=== PATIENT | female | born 1940 | race Caucasian/White ===

== ENCOUNTER 2017-05-02 07:14 | Day surgery (SDC) | payer OTHER ==
--- NOTE | 2017-05-01 13:21 | PREOPHP ---
DATE OF ADMISSION: 05/02/2017 HISTORY OF PRESENT ILLNESS: This 76-year-old patient is admitted for elective cataract surgery of t he left eye. The patient has had progressive deterioration of vision in the left eye. The patient also has had a history of anatomic narrow angle glaucoma which was treated with peripheral iridotomi es bilaterally. The patient's systemic history is positive for systemic hypertension and hypothyroi dism. CURRENT MEDICATIONS INCLUDE: 1. Atenolol. 2. Benazepril 3. Synthroid. ALLERGIES: PATIENT IS ALLERGIC TO SULFACETAMIDE. PHYSICAL EXAMINATION: The visual acuity with best correction is 20/40 in the right eye and 20/200 i n the left eye. Slit lamp examination reveals patent peripheral iridotomies in both eyes. The lens shows evidence of nuclear sclerosis with particular formation in the left eye. Applanation t onometry is 20 mmHg in both eyes. Examination of the retina is within normal limits without evidenc e of abnormal optic disk cupping. DIAGNOSIS: Cataract, left eye. PLAN: Cataract extraction with lens implant, left eye. The risks and alternatives to the surgery h ave been discussed with the patient as well as the hope for improvement of visual acuity leading to a greater ability to perform activities of daily living. The patient understands this and agrees to proceed with surgery. Dictated By: ALON MARTINEZ/NADINE Conf#: [id number] DID#: [id number]
[~2017-05-02] VITALS: Ht 144.8 cm; Wt 91.7 kg
[2017-05-02] VITALS (12 sets, daily range): BP systolic 104–129; BP diastolic 51–61; PULSE 70–79; RESP 11–18; Ht 144.8 cm; Wt 91.7 kg
[~2017-05-02 07:14] MED LIST: BLOOD PRESSURE MEDS; PAIN MEDS; [UNRECOGNIZED DRUG - REMARK]
[2017-05-02] MEDS ORDERED: MOXIFLOXACIN 0.5% 3 ML OPH OPER SCH ×2 (08:00→10:00)
[2017-05-02] MEDS ORDERED: CYCLOPENTOLATE/PHENYLEPH 2 ML OPH OPER SCH ×2 (08:00→10:00)
[2017-05-02] MEDS ORDERED: DICLOFENAC 0.1% 2.5 ML OPH OPER SCH ×2 (08:00→10:00)
[2017-05-02] MEDS ORDERED: TROPICAMIDE 1% 2 ML OPH OPER SCH ×2 (08:00→10:00)
[2017-05-02] MEDS ORDERED: SOD CHLORIDE 0.9% 1,000 ML IV SCH ×2 (08:00→10:00)
[2017-05-02] MEDS ORDERED: LEVO100T82 PO (08:02)
[2017-05-02] MEDS ORDERED: LOSA1TAB20 PO (08:02)
[2017-05-02] MEDS ORDERED: ATEN-51 PO (08:03)
[2017-05-02] MEDS ORDERED: CRES10 PO (08:03)
[2017-05-02] MEDS ORDERED: AMLO-147 PO (08:04)
[2017-05-02] MEDS ORDERED: PANT40TA3 PO (08:04)
[2017-05-02] MEDS ORDERED: TROPICAMIDE 1% 3 ML OPH ONE (08:17)
[2017-05-02] MEDS ORDERED: CARBACHOL 0.01% 1.5 ML OPH INJ ONE (09:25)
[2017-05-02] MEDS ORDERED: CEFAZOLIN 1 GM INJ ONE (09:25)
[2017-05-02] MEDS ORDERED: DEXAMETHASONE 4 MG/ML 1 ML INJ ONE (09:25)
[2017-05-02] MEDS ORDERED: PROPOFOL 20 ML ONE (09:38)
[2017-05-02] MEDS ORDERED: FENTAnyl 50 MCG/ML VIAL ONE (09:58)
[2017-05-02] MEDS ORDERED: LABETALOL HCL 20MG INJ IV PRN (10:00)
[2017-05-02] MEDS ORDERED: HYDROmorphONE (0.2 MG/ML) 10ML SYG IV PRN ×3 (10:00)
[2017-05-02] MEDS ORDERED: FENTAnyl 50 MCG/ML VIAL IV PRN ×2 (10:00)
[2017-05-02] MEDS ORDERED: MEPERIDINE 25 MG INJ IV PRN (10:00)
[2017-05-02] MEDS ORDERED: ONDANSETRON 4 MG INJ IV PRN (10:00)
[2017-05-02] MEDS ORDERED: hydrALAzine 20 MG INJ IV PRN (10:00)
--- NOTE | 2017-05-02 11:04 | SIPON ---
Date/Time of Note Date/Time of Note DATE: 05/02/17 TIME: 11:02 Operative Report Preoperative Diagnosis cataract os Postoperative Diagnosis same Operation/Procedure Performed cataract extraction with lens implant os Surgeon see signature line assistant bookkeeper none Anesthesia: MAC Estimated blood loss: none Transfusion Required none Specimen none Grafts/Implants posterior chamber lens implant Complications none ALON GARNETT MD May 02, 2017 11:03
--- NOTE | 2017-05-02 11:04 | SIPON ---
Date/Time of Note Date/Time of Note DATE: 05/02/17 TIME: 11:02 Operative Report Preoperative Diagnosis cataract os Postoperative Diagnosis same Operation/Procedure Performed cataract extraction with lens implant os Surgeon see signature line psychiatric assistant none Anesthesia: MAC Estimated blood loss: none Transfusion Required none Specimen none Grafts/Implants posterior chamber lens implant Complications none ALON GARNETT MD May 02, 2017 11:03
--- NOTE | 2017-05-02 11:10 | OPR ---
DATE OF OPERATION: 05/02/2017 PREOPERATIVE DIAGNOSIS: Cataract, left eye. POSTOPERATIVE DIAGNOSIS: Cataract, left eye. OPERATION PERFORMED: Cataract extraction with lens implant, left eye. SURGEON: Alon Soni MD. ANESTHESIA: Monitored anesthesia, Dr. Lyons. OPERATION: Phacoemulsification with posterior chamber intraocular lens implant, left eye. PROCEDURE: The patient was brought to the operating room and placed on the table with an IV in plac e and the patient attached to an pile driver operator barge mounted. Oxygen was given via face mask. After some intravenous sedation was administered, local anesthesia was given using Xylocaine 2% with epinephrine, mixed with Marcaine 0.5%. This was given in a lid block and retrobulbar injection. The patient was then prepped and draped in the usual sterile manner. A wire lid speculum was inserted between the lids of the left eye. A Superblade was used to enter th e anterior chamber at the corneoscleral limbus at the 10:30 o'clock position. A separate incision wa s made using a 3.0-mm keratome which entered the corneoscleral junction at the 12 o'clock position. Through this 3-mm opening, an irrigating cystotome was introduced into the anterior chamber. The jessica mber was filled with Viscoat and an anterior capsulotomy was performed. Balanced salt solution was t hen used for hydrodissection of the lens. A phacoemulsification handpiece was then brought into the field and introduced into the anterior chamber. The lens nucleus was emulsified using a deep groove and cracking the nucleus into quadrants. Following this, each quadrant was aspirated and emulsified at the pupillary margin. It was noted that there was a layer of epinucleus on the posterior capsule extending from the inferi or quadrant to the superonasal quadrant that was difficult to remove and remained partially in place . At the end of the phacoemulsification. It was decided that if this presented a visual problem du ring the postoperative period, the patient would be treated with a laser capsulotomy to create a win noel in the center of the posterior capsule for patient to have satisfactory central visual acuity. After this was completed, the irrigation/aspiration handpiece was brought to the field, introduced i nto the posterior chamber, and the lens cortical material was removed. When this was completed, crystal tional Viscoat was injected into the anterior and posterior chambers. The 3-mm opening had its internal lips enlarged, and then the posterior chamber intraocular lens davis suring 21.5 diopters (Bausch and Lomb model LI61A0) was then injected into the posterior chamber usi ng the lens injector system. After the leading haptic was introduced into the capsular bag and the l ens optic was present in the center of the eye, the injector was removed and the trailing haptic was grasped with non-toothed forceps and introduced into the capsular fold superiorly. A Sinskey hook w as then used to rotate the intraocular lens so that the lips were oriented in the horizontal meridia n. One 10-0 nylon suture was placed across the wound. Prior to tying, the irrigation/aspiration handpiece was reintroduced into the anterior chamber to re move the Viscoat. Miochol was instilled to constrict the pupil, and then the 10-0 nylon suture was t ied. The ends were cut short and then the knot was buried. Then, 0.5 mL of dexamethasone and 0.5 mL of Ancef were injected into the sub-Tenon space in the infe rior fornix. Ciloxan drops were then placed on the surface of the eye. The speculum was removed and a patch was applied. The patient then left the operating room in satisfactory condition. Dictated By: ALON MARTINEZ/NADINE Conf#: [id number] DID#: [id number]
== END 2017-05-02 12:15 | disposition home or self-care (01) ==
LOC: SDS 07:14
PROVIDERS: ATTEND Ophthalmology
DX: H25.12 Age-related nuclear cataract, left eye (principal); I10 Essential (primary) hypertension
CPT/HCPCS: 66984; J0690; J1100; J3010; J7030; V2632

== ENCOUNTER → 2017-06-22 | Outpatient (CLI) | payer OTHER ==
[~2017-06-22] MED LIST changes: +AMLO-147 PO; +APRACLONIDINE 1% 0.1 ML OPH ONE; +ATEN-51 PO; -BLOOD PRESSURE MEDS; +CRES10 PO; +LEVO100T82 PO; +LOSA1TAB25 PO; +OPHTHALMIC IRRIG SOLUTION 120 ML ONE; -PAIN MEDS; +PANT40TA3 PO; +PHENYLephrine 10% 5 ML OPH ONE; +PROPARACAINE 0.5% 15 ML OPH ONE; +TROPICAMIDE 1% 3 ML OPH ONE; -[UNRECOGNIZED DRUG - REMARK]
== END | disposition home or self-care (01) ==
LOC: RAD 10:26
PROVIDERS: ATTEND Ophthalmology
DX: H26.9 Unspecified cataract (principal)
CPT/HCPCS: 66821

== ENCOUNTER 2018-08-07 07:48 | Day surgery (SDC) | payer OTHER ==
--- NOTE | 2018-08-06 12:28 | PREOPHP ---
DATE OF ADMISSION: 08/07/2018 HISTORY OF PRESENT ILLNESS: This 78-year-old patient is admitted for elective cataract surgery of th e right eye. The patient previously underwent cataract surgery of the left eye 2 years ago with an e xcellent visual result. The patient denies any other history of eye disease or injury. PAST MEDICAL HISTORY: Systemic history is positive for hypertension, hypothyroidism, neuropathy and heart disease. CURRENT MEDICATIONS: Include: 1. Atenolol. 2. Gabapentin. 3. Losartan. 4. Amlodipine. 5. Nitroglycerin. The patient had previously been on aspirin therapy, but is currently not using it. ALLERGIES: THERE ARE NO KNOWN ALLERGIES. PHYSICAL EXAMINATION: The visual acuity with correction is 20/50 in the right eye and 20/40 in the l eft eye. Slit lamp examination reveals a nuclear sclerotic cataract in the right eye and a posterior chamber intraocular lens in appropriate position in the left eye. Applanation tonometry is 16 mmHg. Examination of the retina is within normal limits. DIAGNOSIS: Nuclear sclerotic cataract, right eye. PLAN: Cataract extraction with lens implant, right eye. The risks and alternatives to the surgery h ave been discussed with the patient and patient has opted to proceed with surgery. Dictated By: ALON MARTINEZ/NADINE Conf#: [id number] DID#: [id number]
[2018-08-06 12:30] VITALS: BMI 30.8
[2018-08-07] VITALS (10 sets, daily range): BP systolic 119–125; BP diastolic 54–64; PULSE 64–72; RESP 15–28; Ht 146.1 cm; Wt 70.1 kg
[~2018-08-07] VITALS: Ht 146.1 cm; Wt 70.1 kg
[~2018-08-07 07:48] MED LIST changes: -APRACLONIDINE 1% 0.1 ML OPH ONE; -CRES10 PO; +CYCLOPENTOLATE/PHENYLEPH 2 ML OPH OPER SCH; +DICLOFENAC 0.1% 2.5 ML OPH OPER SCH; +MOXIFLOXACIN 0.5% 3 ML OPH OPER SCH; -OPHTHALMIC IRRIG SOLUTION 120 ML ONE; -PHENYLephrine 10% 5 ML OPH ONE; -PROPARACAINE 0.5% 15 ML OPH ONE; +ROSU10TA55 PO; +SOD CHLORIDE 0.9% 1,000 ML IV SCH; +TROPICAMIDE 1% 15 ML OPH OPER SCH; -TROPICAMIDE 1% 3 ML OPH ONE
[2018-08-07] MEDS ORDERED: ROSU10TA55 PO (08:15)
[2018-08-07] MEDS ORDERED: PANT40TA4 PO (08:15)
[2018-08-07] MEDS ORDERED: LEVO100T82 PO (08:15)
[2018-08-07] MEDS ORDERED: LOSA1TAB25 PO (08:15)
[2018-08-07] MEDS ORDERED: NITR0.4T39 SL (08:16)
[2018-08-07] MEDS ORDERED: LOPE-123 PO (08:18)
[2018-08-07] MEDS ORDERED: ERGO2000 PO (08:18)
[2018-08-07] MEDS ORDERED: ATEN-51 PO (08:20)
[2018-08-07] MEDS ORDERED: AMLO-147 PO (08:20)
[2018-08-07] MEDS ORDERED: OMEG-135 PO (08:21)
--- NOTE | 2018-08-07 09:32 | PREAC ---
Date/Time of Note Date/Time of Note DATE: 08/07/18 TIME: 09:30 Anesthesia Eval and Record Evaluation Time Pre-Procedure Interview DATE: 08/07/18 TIME: 09:30 Age 78 Sex female NPO: 8 hrs Preoperative diagnosis Right Eye Cataract Planned procedure Right Eye Cataract Extraction with IOL Implant Past Medical History Past Medical History: Includes Cardio: HTN, Dyslipidemia Endo: Hypothyroid Surgery & Anesthesia Issues No known issue Meds Anticoagulation: No Beta Koffi within 24 hr: Yes Reported Medications Jones-3 Fatty Acids/Fish Oil (Fish Oil 1,000 mg Capsule) 1 Each Capsule, 1 EACH PO DAILY, CAP 08/07/18 Amlodipine Besylate* (Amlodipine Besylate*) 10 Mg Tablet, 10 MG PO DAILY, #30 TAB 08/07/18 Atenolol* (Atenolol*) 25 Mg Tablet, 25 MG PO DAILY, #30 TAB 08/07/18 Ergocalciferol (Vitamin D2) (VITAMIN D2) 2,000 Unit Tablet, 2000 UNIT PO DAILY, TAB 08/07/18 Loperamide Hcl* (Loperamide Hcl*) 2 Mg Cap, 2 MG PO BID PRN for DIARRHEA, CAP 08/07/18 Nitroglycerin* (Nitrostat*) 0.4 Mg Tab.subl, 0.4 MG SL Q5MIN PRN for CHEST PAIN, BOTTLE 08/07/18 Rosuvastatin Calcium* (Crestor*) 10 Mg Tablet, 10 MG PO QHS, #30 TAB 08/07/18 Pantoprazole* (Pantoprazole*) 40 Mg Tablet.dr, 40 MG PO DAILY, TAB 08/07/18 Levothyroxine Sodium* (Levoxyl*) 100 Mcg Tablet, 100 MCG PO BEFORE BREAKFAST, #30 TAB 08/07/18 Losartan-Hydrochlorothiazide (Losartan-HCTZ) 100-25 Mg Tab, 1 TAB PO DAILY, TAB 08/07/18 Discontinued Reported Medications Pantoprazole* (Protonix*) 40 Mg Tablet.dr, 40 MG PO DAILY, TAB 05/02/17 Amlodipine Besylate* (Amlodipine Besylate*) 10 Mg Tablet, 10 MG PO DAILY, #30 TAB 05/02/17 Atenolol* (Atenolol*) 25 Mg Tablet, 25 MG PO QHS, #30 TAB 05/02/17 Rosuvastatin Calcium* (Crestor*) 10 Mg Tablet, 10 MG PO QHS, #30 TAB 05/02/17 Levothyroxine Sodium* (Levoxyl*) 100 Mcg Tablet, 100 MCG PO BEFORE BREAKFAST, #30 TAB 05/02/17 Losartan-Hydrochlorothiazide (Losartan-HCTZ) 100-25 Mg Tab, 1 TAB PO DAILY, TAB 05/02/17 Current Medications Diclofenac Sodium (Voltaren 0.1%) 1 drop Q5 MIN X 3 OPER Last administered on 08/07/18at 08:30; Admin Dose 1 DROP; Start 08/07/18 at 06:00 Tropicamide (Mydriacyl 1%) 1 drop Q5 MIN X3 OPER Last administered on 08/07/18at 08:30; Admin Dose 1 DROP; Start 08/07/18 at 06:00 Moxifloxacin HCl (Vigamox) 1 drop Q5 MIN X 3 OPER Last administered on 08/07/18at 08:30; Admin Dose 1 DROP; Start 08/07/18 at 06:00 Cyclopentolate/ Phenylephrine (Cyclomydril Oph 2 ml) 1 drop Q5 MIN X 3 OPER Last administered on 08/07/18at 08:30; Admin Dose 1 DROP; Start 08/07/18 at 06:00 Sodium Chloride 1,000 ml @ 25 mls/hr Q24H IV ; Start 08/07/18 at 06:00 Meds reviewed: Yes Allergies Coded Allergies: Sulfa (Sulfonamide Antibiotics) (Verified Allergy, Mild, 08/07/18) Allergies Reviewed: Yes Labs/Studies Labs Reviewed: Reviewed by anesthesiologist test: N/A Studies: ECG (n/a), CXR (n/a) Pre-procedure Exam Airway: Adequate mouth opening, Adequate thyromental dist Mallampati: Mallampati II Teeth: Normal Lung: Normal Heart: Normal ASA Physical Status ASA physical status: 3 Emergency: None Planned Anesthetic General/MAC: MAC Planned Pain Management Parenteral pain med Pre-operative Attestations Prior to commencing anesthesia and surgery, the patient was re-evaluated, there was verification of: *The patient's identity *The results of appropriate recent lab work and preoperative vital signs *The above evaluation not changing prior to induction *Anesthetic plan, risk benefits, alternative and complications discussed with patient/family; questions answered; patient/family understands, accepts and wishes to proceed. MEAGAN MCGINNIS MD Aug 07, 2018 09:32
[2018-08-07] MEDS ORDERED: PROPOFOL 20 ML ONE (09:37)
[2018-08-07] MEDS ORDERED: ONDANSETRON 4 MG INJ ONE (09:37)
[2018-08-07] MEDS ORDERED: METOCLOPRAMIDE 10 MG INJ ONE (09:37)
[2018-08-07] MEDS ORDERED: METOCLOPRAMIDE 10 MG INJ IV PRN (10:00)
[2018-08-07] MEDS ORDERED: hydrALAzine 20 MG INJ IV PRN (10:00)
[2018-08-07] MEDS ORDERED: FENTAnyl 50 MCG/ML VIAL IV PRN (10:00)
[2018-08-07] MEDS ORDERED: LABETALOL HCL 20MG INJ IV PRN (10:00)
[2018-08-07] MEDS ORDERED: ONDANSETRON 4 MG INJ IV PRN (10:00)
[2018-08-07] MEDS ORDERED: EPHEDrine SULFATE 50 MG/5 ML SYG IV PRN (10:00)
[2018-08-07] MEDS ORDERED: OXYCODONE/ACETAMINOPHEN (5/325) TAB PO PRN (10:00)
[2018-08-07] MEDS ORDERED: morphine (1 MG/ML) 10ML SYRINGE IV PRN (10:00)
--- NOTE | 2018-08-07 10:11 | NUR ---
RECEIVED RESPONSIVE IN NO DISTRESS, RIGHT EYE PATCH AND SHIELD IN PLACE. DENIES PAIN AT THIS TIME.
[2018-08-07] MEDS ORDERED: DEXAMETHASONE 4 MG/ML 1 ML INJ ONE (10:13)
[2018-08-07] MEDS ORDERED: CEFAZOLIN 1 GM INJ ONE (10:13)
[2018-08-07] MEDS ORDERED: NA HYALURONATE/CHONDROITIN 0.5 ML SYG ONE (10:13)
[2018-08-07] MEDS ORDERED: CARBACHOL 0.01% 1.5 ML OPH INJ ONE (10:13)
[2018-08-07] MEDS ORDERED: LIDOCAINE 4% (MPF) 5 ML INJ ONE (10:13)
--- NOTE | 2018-08-07 10:16 | SIPON ---
Date/Time of Note Date/Time of Note DATE: 08/07/18 TIME: 10:15 Operative Report Preoperative Diagnosis nuclear sclerotic cataract od Postoperative Diagnosis same Operation/Procedure Performed cataract extraction with lens implant od Surgeon alon garnett or assistant none Anesthesia: MAC Estimated blood loss: none Transfusion Required none Specimen none Grafts/Implants posterior chamber lens implant Complications none ALON GARNETT MD Aug 07, 2018 10:16
--- NOTE | 2018-08-07 10:25 | PAC ---
Date/Time of Note Date/Time of Note DATE: 08/07/18 TIME: 10:25 Post-Anesthesia Notes Post-Anesthesia Note Last documented vital signs T:98.0 Activity: WNL Respiratory function: WNL Cardiovascular function: WNL Mental status: Baseline Pain reasonably controlled: Yes Hydration appropriate: Yes Nausea/Vomiting absent: Yes MEAGAN MCGINNIS MD Aug 07, 2018 10:25
--- NOTE | 2018-08-07 10:50 | NUR ---
FULLY AWAKE AND ALERT. STATED SHE STILL HAS MINIMAL PAIN AND FEELING A LITTLE DIZZY. MADE AWARE NORMAL FEELING DUE TO ANESTHESIA. DAUGHTER UPDATED ON STATUS AND WILL WAIT IN [facility]. REPORT TO SANA KULKARNI. TRANSFERRED TO [facility].NO S/S BLEEDING. RUGHT EYE PATCH AND SHIELD IN PLACE.
--- NOTE | 2018-08-07 12:03 | NUR ---
THE PT ALERT AND ORIENTED VITAL SIGNS WITHIN NORMAL LIMITS, NO PAIN OR DISCOMFORT REPORTED D/C INSTRUCTIONS PROVIDED TO PT AND FAMILY, VERBALIZED UNDERSTANDING AND READINESS TO GO HOME INCISION SITE: DRY CLEAN AND INTACT
--- NOTE | 2018-08-07 15:05 | OPR ---
DATE OF OPERATION: 08/07/2018 PREOPERATIVE DIAGNOSIS: Nuclear sclerotic cataract, right eye. POSTOPERATIVE DIAGNOSIS: Nuclear sclerotic cataract, right eye. PROCEDURE: Cataract extraction with lens implant, right eye. SURGEON: Alon Soni MD ANESTHESIA: Local standby. ANESTHESIOLOGIST: Dr. Lindquist OPERATION: Phacoemulsification with posterior chamber intraocular lens implant, right eye. PROCEDURE: The patient was brought to the operating room and placed on the table with an IV in place and the patient attached to an nurse monitoring. Oxygen was given via face mask. After some intravenous sedation was administered, local anesthesia was given using Xylocaine 2% with epinephrine, mixed with Marcaine 0.5%. This was given in a lid block and retrobulbar injection. The p atient was then prepped and draped in the usual sterile manner. A wire lid speculum was inserted between the lids of the right eye. A Superblade was used to enter th e anterior chamber at the corneoscleral limbus at the 10:30 o'clock position. A separate incision was made using a 3.0-mm keratome which entered the corneoscleral junction at the 12 o'clock position. Th rough this 3-mm opening, an irrigating cystitome was introduced into the anterior chamber. The chambe r was filled with Viscoat and an anterior capsulotomy was performed. Balanced salt solution was then used for hydrodissection of the lens. A phacoemulsification handpiece was then brought into the fiel d and introduced into the anterior chamber. The lens nucleus was emulsified using a deep groove and c racking the nucleus into quadrants. Following this, each quadrant was aspirated and emulsified at the pupillary margin. After this was completed, the irrigation/aspiration handpiece was brought to the field, introduced in to the posterior chamber, and the lens cortical material was removed. When this was completed, additi onal Viscoat was injected into the anterior and posterior chambers. The 3-mm opening had its internal lips enlarged, and then the posterior chamber intraocular lens laure uring 23.5 diopters posterior chamber intraocular lens (Bausch and Lomb model LI61AO) was then inject ed into the posterior chamber using the lens injector system. After the leading haptic was introduced into the capsular bag and the lens optic was present in the center of the eye, the injector was ham alex and the trailing haptic was grasped with non-toothed forceps and introduced into the capsular fol d superiorly. A Sinskey hook was then used to rotate the intraocular lens so that the lips were orien viktoriya in the horizontal meridian. One 10-0 nylon suture was placed across the wound. Prior to tying, the irrigation/aspiration handpiece was reintroduced into the anterior chamber to rem ove the Viscoat. Miochol was instilled to constrict the pupil, and then the 10-0 nylon suture was tie d. The ends were cut short and then the knot was buried. Then, 0.5 mL of dexamethasone and 0.5 mL of Ancef were injected into the sub-Tenon space in the infer ior fornix. Ciloxan drops were then placed on the surface of the eye. The speculum was removed and a patch was applied. The patient then left the operating room in satisfactory condition. Dictated By: ALON MARTINEZ/NADINE Conf#: [id number] DID#: [id number]
== END 2018-08-07 11:12 | disposition home or self-care (01) ==
LOC: SDS 07:48
PROVIDERS: ATTEND Ophthalmology
DX: H25.11 Age-related nuclear cataract, right eye (principal); I10 Essential (primary) hypertension; E78.5 Hyperlipidemia, unspecified; E03.9 Hypothyroidism, unspecified
CPT/HCPCS: 66984; J0690; J1100; J2405; J2765; J3010; V2632